=== PATIENT | female | born 1980 | race Caucasian/White ===

== ENCOUNTER 2017-03-17 05:25 | Emergency (ER) | payer OTHER | END 2017-03-17 07:34 | disposition home or self-care (01) | LOC: ER 05:25 | DX: N39.0 Urinary tract infection, site not specified (principal); F17.210 Nicotine dependence, cigarettes, uncomplicated | CPT/HCPCS: 36415; 96374; 96375 ==

== ENCOUNTER 2017-05-15 18:18 | Emergency (ER) | payer OTHER | END 2017-05-15 19:28 | disposition home or self-care (01) | LOC: ER 18:18 | DX: S91.311A Laceration without foreign body, right foot, initial encounter (principal); W22.8XXA Striking against or struck by other objects, initial encounter; Y92.009 Unspecified place in unspecified non-institutional (private) residence as the place of occurrence of the external cause | CPT/HCPCS: 90471 ==